=== PATIENT | male | born 1950 | race Caucasian/White ===

== ENCOUNTER 2017-04-12 07:50 | Day surgery (SDC) | payer MEDICARE, OTHER ==
[~2017-04-12 07:50] MED LIST: RINGER'S SOLUTION,LACTATED 1,000 ML IV PRN
[2017-04-12] MEDS ORDERED: RINGER'S SOLUTION,LACTATED 1,000 ML IV ONE (08:25)
[2017-04-12] MEDS ORDERED: RINGER'S SOLUTION,LACTATED 1,000 ML IV PRN (09:43)
[2017-04-12 11:32] VITALS: BP 151/68
--- NOTE | 2017-04-12 15:07 | OR ---
Operative Report - Dictated Report Narrative: OPERATIVE REPORT DATE OF OPERATION: 04/12/2017 PREOPERATIVE DIAGNOSIS: History of colon polyps. No recent dedicated colon studies. Diverticulosis POSTOPERATIVE DIAGNOSIS: 2 polyps in the cecum, polyp at the hepatic flexure, 80 cm, 70 cm, 60 cm, and in the rectum (pathology pending). Severe sigmoid diverticulosis OPERATION: Colonoscopy with hot forceps polypectomies in the cecum 2, at the hepatic flexure, at 80 cm, 70 cm, 60 cm, and in the rectum. (Pathology not submitted on polyp at 70 cm) SURGEON: Darling Mims MD ANESTHESIA: YESENIA Serra CRNA INDICATIONS FOR PROCEDURE: The patient is a 60-year-old male referred by Dr. Ling. He had 2 small polyps removed in 2001. Colonoscopy in 2006 was negative with exception of diverticulosis. He is currently asymptomatic. Patient's father had colon polyps. FINDINGS: Severe sigmoid diverticulosis. <5mm polyps in the cecum 2, at the hepatic flexure, at 80 cm, 70 cm, 60 cm, and in the rectum. NARRATIVE OF PROCEDURE: The patient was identified in the holding area, and prior to the administration of anesthetic, a multidisciplinary timeout was observed. With the patient in the left lateral position and after the administration of intravenous sedation, the perineum was inspected. There was no evidence of pilonidal disease or skin breakdown. The external appearance of the anus was normal. Sphincter tone was good. The flexible fiberoptic colonoscope was inserted into the rectum which was insufflated with air. The rectal mucosa and submucosal vascular pattern appeared normal, the prep was seen to be complete. The scope was advanced through the sigmoid colon, which contained numerous large non-impacted noninflamed diverticular openings. The scope was advanced up the descending colon, and around the splenic flexure where the triangular haustral architecture of the transverse colon was seen. The scope was advanced across the transverse colon, around the hepatic flexure to the cecum, where the confluence of tenia and the ileocecal valve were identified. There was a 4 mm polyp in the apex of the cecum with an adjacent 2 mm area of polypoid change. These were biopsied and then thoroughly destroyed with electrocautery. Both polypectomy sites were seen to be complete and hemostatic The mucosa at this level appeared otherwise normal. The scope was then slowly withdrawn in a circular fashion so that all aspects of colonic mucosa were inspected. The colon was relatively normal in course and caliber. The haustral architecture appeared well preserved throughout with no evidence of external compression. The mucosa and submucosal vascular pattern appeared normal, specifically there was no gross evidence to suggest colitis or inflammatory bowel disease and no AV malformations were seen. The diverticulosis was severe in degree and confined primarily to the sigmoid colon. <5mm polyps were encountered at the hepatic flexure, at 80 cm, 70 cm, 60 cm, and in the rectum. The polyp at 70 cm could not be grasped for a biopsy and was simply destroyed by tangential application of electrocautery. The site was seen to be complete and hemostatic. The other polyps were biopsied and then thoroughly destroyed with electrocautery. All polypectomy sites were seen to be complete and hemostatic The scope was gradually withdrawn to the level of the rectum. As much insufflated air as possible was removed. The scope was withdrawn from the patient and the procedure terminated. The patient tolerated the anesthetic and procedure well without complication and was transferred back to the ambulatory surgery area awake and in stable condition. The patient remained stable throughout a period of postoperative observation. He denied abdominal discomfort, was able to tolerate by mouth intake, and was up without assistance. I shared the operative findings with the patient and he was given copies of the photographs which appear in the medical record. He was discharged home with instructions not to engage in hazardous activity today, but may resume normal activity tomorrow, and advance diet as tolerated. He is to continue those medications as listed in the history and physical exam. I made arrangements to contact him with the biopsy reports and will make additional recommendations for treatment and follow-up based upon those results. A pamphlet on diverticular disease was reviewed with him and given to him. A trial of Benefiber with titration was suggested. Reviewed and electronically signed
== END 2017-04-12 07:51 | disposition home or self-care (01) ==
LOC: AMB 07:50
PROVIDERS: ATTEND Surgery
PROC: 0DBE8ZX Excision of Large Intestine, Via Natural or Artificial Opening Endoscopic, Diagnostic (ICD-10-PCS; 2017-04-12)
PROC: 0DBL8ZX Excision of Transverse Colon, Via Natural or Artificial Opening Endoscopic, Diagnostic (ICD-10-PCS; 2017-04-12)
PROC: 0DBP8ZX Excision of Rectum, Via Natural or Artificial Opening Endoscopic, Diagnostic (ICD-10-PCS; 2017-04-12)
PROC: 0DBH8ZX Excision of Cecum, Via Natural or Artificial Opening Endoscopic, Diagnostic (ICD-10-PCS; principal; 2017-04-12 08:55)
DX: Z12.11 Encounter for screening for malignant neoplasm of colon (principal); K63.5 Polyp of colon; K62.1 Rectal polyp; K57.30 Diverticulosis of large intestine without perforation or abscess without bleeding; I10 Essential (primary) hypertension; E78.5 Hyperlipidemia, unspecified; M19.90 Unspecified osteoarthritis, unspecified site; E66.9 Obesity, unspecified; Z68.36 Body mass index [BMI] 36.0-36.9, adult